=== PATIENT | male | born 1955 | race Hispanic/Latino ===

== ENCOUNTER 2017-07-29 03:47 | Observation (INO) | payer BC, OTHER ==
[~2017-07-29] VITALS: Ht 167.6 cm; Wt 98.1 kg
[2017-07-29] VITALS (7 sets, daily range): BP systolic 124–147; BP diastolic 80–89
[~2017-07-29 03:47] MED LIST: ASPIRIN ENTERI325 MG PO; ATORVASTATIN CA20 MG PO; MAGNESIUM OXID400 MG PO; METOPROLOL SUCC25 MG PO; NITROGLYCERIN0.4 MG SL; PLAVIX75 MG PO; VASOTEC5 MG PO
[2017-07-29] MEDS ORDERED: PANTOPRAZOLE 40 MG 10ML VIAL IV STA (04:21)
[2017-07-29] MEDS ORDERED: ASPIRIN 81 MG CHEW TAB ONE (04:24)
[2017-07-29] MEDS ORDERED: ASPIRIN 81 MG CHEW TAB PO ONE (04:30)
[2017-07-29 04:31] LABS: BASOPHILS # (AUTO) 0.1 (0.0-0.1); BASOPHILS % 0.5 % (0.0-1.0); EOSINOPHILS # (AUTO) 0.5 (0.0-0.4); HEMATOCRIT 44.1 % (38.2-49.6); HEMOGLOBIN 15.2 g/dL (14.0-18.0); LYMPHOCYTES # (AUTO) 4.2 (1.0-3.2); LYMPHOCYTES % 43.6 % (18.0-39.1); MEAN CORPUSCULAR HEMOGLOBIN 30.7 pg (28-32); MEAN CORPUSCULAR HGB CONC 34.5 g/dL (31-35); MEAN CORPUSCULAR VOLUME 89.1 fL (81-99); MONOCYTES # (AUTO) 0.7 (0.2-0.8); NEUTROPHILS # (AUTO) 4.2 (2.1-6.9); NEUTROPHILS % 43.8 % (38.7-80.0); PLATELET COUNT 230 x10e3/uL (140-360); RED BLOOD COUNT 4.95 x10e6/uL (4.3-5.7); RED CELL DISTRIBUTION WIDTH 12.6 % (11.7-14.4)
[2017-07-29 04:35] LABS: INR 1.15; PROTHROMBIN TIME 13.8 seconds (11.9-14.5)
[2017-07-29 04:36] LABS: PARTIAL THROMBOPLASTIN TIME 29.9 seconds (23.8-35.5)
[2017-07-29 04:46] LABS: ALANINE AMINOTRANSFERASE 19 IU/L (0-55); ALBUMIN 3.9 g/dL (3.5-5.0); ALBUMIN/GLOBULIN RATIO 1.3 (0.8-2.0); ALKALINE PHOSPHATASE 58 IU/L (40-150); ANION GAP 13.5 mmol/L (8-16); BLOOD UREA NITROGEN 16 mg/dL (7-26); BUN/CREATININE RATIO 14 (6-25); CALCIUM 9.3 mg/dL (8.4-10.2); CARBON DIOXIDE 26 mmol/L (22-29); CHLORIDE 104 mmol/L (98-107); CREATINE KINASE 124 IU/L (30-200); CREATININE, SERUM 1.13 mg/dL (0.72-1.25); EST GLOMERULAR FILTRATION RATE > 60 ML/MIN (60-); GLUCOSE 265 mg/dL (74-118); MAGNESIUM 2.1 MG/DL (1.3-2.1); POTASSIUM 4.5 mmol/L (3.5-5.1); SODIUM 139 mmol/L (136-145)
[2017-07-29 04:51] LABS: CREATINE KINASE MB < 1.00 ng/mL (0-4.3)
--- NOTE | 2017-07-29 05:48 | Diagnostic Imaging Report ---
EXAMINATION: CHEST 2 VIEWS INDICATION: Chest pain COMPARISON: 05/06/2016 FINDINGS: TUBES and LINES: None. LUNGS: Lungs are well inflated. Lungs are clear. There is no evidence of pneumonia or pulmonary edema. PLEURA: No pleural effusion or pneumothorax. HEART AND MEDIASTINUM: The cardiomediastinal silhouette is unremarkable. BONES AND SOFT TISSUES: No acute osseous lesion. Soft tissues are unremarkable. UPPER ABDOMEN: No free air under the diaphragm. IMPRESSION: No acute thoracic abnormality. Signed by: Dr. Pedro Tao M.D. on 07/29/2017 5:44 AM
[2017-07-29] MEDS ORDERED: ACETAMINOPHEN 325 MG TAB PO PRN (06:30)
[2017-07-29] MEDS ORDERED: ONDANSETRON HCL 4 MG ORAL DISINTEGRATING TAB PO PRN (06:30)
[2017-07-29] MEDS ORDERED: NITROGLYCERIN 0.4 MG SUBL SL PRN ×2 (06:30→08:15)
[2017-07-29] MEDS ORDERED: MORPHINE SULFATE 2 MG/ML SYR IV PRN (06:30)
--- OUTSIDE RECORDS SUMMARY | 2017-07-29 06:53 | XMS REPORT ---
Author [facility] Address Unknown Phone Unavailable Care Team Providers Care Inside Channel Account Manager Name Role Phone LOUANN ALVAREZ Unavailable Unavailable Problems This patient has no known problems. Allergies, Adverse Reactions, Alerts This patient has no known allergies or adverse reactions. Medications This patient has no known medications. Results Test Description Test Time Test Comments Text Results Atomic Results Result Comments CHEST 2 VIEWS [place] [address] Patient Name: LAQUITA VITALE MR #: [id number] : 1955 Age/Sex: 61/M Req # : [id number] Adm Physician: Ordered by: LOUANN ALVAREZ MD Report #: [id number] Location: ER Room/Bed: Procedure: [id number] DX/CHEST 2 VIEWS Exam Date: 07/29/17 Exam Time: 7 REPORT STATUS: Signed EXAMINATION: CHEST 2 VIEWS INDICATION: Chest pain COMPARISON: 05/06/2016 FINDINGS : TUBES and LINES: None. LUNGS: Lungs are well inflated. Lungs are clear. There is no evidence of pneumonia or pulmonary edema. PLEURA: No pleural effusion or pneumothorax. HEART AND MEDIASTINUM: The cardiomediastinal silhouette is unremarkable. BONES AND SOFT TISSUES: No acute osseous lesion. Soft tissues are unremarkable. UPPER ABDOMEN: No free air under the diaphragm. IMPRESSION: No acute thoracic abnormality. Signed by: Dr. Pedro Tao M.D. on 07/29/2017 5:44 AM Dictated By: PEDRO HADLEY MD 3 Transcribed By: ELVIS on 07/29/17543 COPY TO: LOUANN ALVAREZ MD
[2017-07-29] MEDS: FAMOTIDINE 20 MG/2 ML VIAL IV SCH ×2 (08:47→22:34)
[2017-07-29] MEDS ORDERED: ENALAPRIL MALEATE 5 MG TAB PO SCH (09:00)
[2017-07-29] MEDS ORDERED: CLOPIDOGREL BISULFATE 75 MG TAB PO SCH ×2 (09:00)
[2017-07-29] MEDS ORDERED: ASPIRIN 325 MG TAB EC PO SCH ×2 (09:00)
--- NOTE | 2017-07-29 09:31 | Consultation ---
DATE OF CONSULTATION: July 29, 2017 CARDIOLOGY CONSULTATION REASON FOR CONSULTATION: Chest pain. CONSULTING PHYSICIAN: Dr. Horner. HPI: This is a pleasant 61-year-old male who presented with chest pain. According to the patient, 30 minutes to an hour before arrival he was woke up from sleep with chest pain. He stated he felt like a pressure at the center of his chest that radiated to his neck. He also stated the day before he had mowed his lawn and cut the grass. He denies any palpitations, any dizziness, any shortness of breath, any diaphoresis, or headache. Troponin times 1 negative. Magnesium was 2.1. EKG showed sinus bradycardia with inverted T-waves. PAST MEDICAL HISTORY: High blood pressure. PAST SURGICAL HISTORY: Cholecystectomy and cardiac catheterization with no intervention. FAMILY HISTORY: Positive for CAD. SOCIAL HISTORY: No smoking. He lives at home with the and drinks occasionally. MEDICATIONS: He was on magnesium, metoprolol, aspirin, atorvastatin, Plavix, Vasotec, and nitroglycerin sublingual. ALLERGIES: HE IS NOT ALLERGIC TO ANY MEDICATIONS. REVIEW OF SYSTEMS: Negative except those mentioned above. Is positive with chest pain. PHYSICAL EXAMINATION VITAL SIGNS: Temperature 98, heart rate 52, blood pressure 135/88, respirations 20, oxygen saturation 96% on room air. GENERAL: He is awake, alert and oriented times 3. HEENT: Mucous membranes moist. NECK: Supple. LUNGS: Bilaterally clear to auscultation. CARDIOVASCULAR: S1 and S2 present. ABDOMEN: Soft. NEUROLOGICAL: Intact. EXTREMITIES: With no edema. LABS: Sodium 139, potassium 4.5, chloride 104, CO2 26, BUN 16, creatinine 1.13, glucose 265. White blood cells 9.59, hemoglobin 15.2, hematocrit 44.1, and platelets 230,000. PT 13.8, PTT 29.9 and INR 1.15. IMPRESSION 1. Chest pain. 2. Hypertension. 3. Possible diabetic. 4. Myocardial infarction, history. ASSESSMENT AND PLAN 1. He had a recent cardiac catheterization last year in April 2016 with medical management. No PCI. 2. Due to the elevated nonfasting blood sugar, will check his hemoglobin A1c and TSH. 3. Pending an echo to reassess the LV and the valve function. Will get serial cardiac enzymes. Resume home medications. Heart rate is low. Will go ahead and hold the beta darlin for now. Will continue statin and nitrates. Further cardiac workup pending the troponin labs times 2 more sets. Thank you for this consultation. DICTATED BY FORTINO BERNAL NP Job#: [id number] KIERSTEN
[2017-07-29 12:53] LABS: CREATINE KINASE MB 1.7 ng/mL (0-5.0)
[2017-07-29] MEDS ORDERED: DEXTROSE 50% SYRINGE 50 ML IV PRN (15:45)
[2017-07-29] MEDS: INSULIN REGULAR, HUMAN 100 UNIT/1 ML 3ML VIAL SQ SCH ×2 (16:30→21:00)
[2017-07-29] MEDS ORDERED: ATORVASTATIN 20 MG TAB PO SCH (21:00)
[2017-07-29 21:30] LABS: CREATINE KINASE MB 4.7 ng/mL (0-5.0)
[2017-07-29] MEDS: ENALAPRIL MALEATE 5 MG TAB PO SCH (23:09)
[2017-07-29] MEDS: CLOPIDOGREL BISULFATE 75 MG TAB PO SCH (23:09)
[2017-07-29] MEDS: ATORVASTATIN 20 MG TAB PO SCH (23:09)
[2017-07-29] MEDS: ASPIRIN 325 MG TAB EC PO SCH (23:09)
[2017-07-30 04:00] VITALS: BP 121/80
[2017-07-30 06:54] LABS: CHOL/HDL RATIO 3.7 (3.9-4.7)
[2017-07-30 07:06] LABS: CREATINE KINASE MB 6.1 ng/mL (0-5.0)
[2017-07-30] MEDS: INSULIN REGULAR, HUMAN 100 UNIT/1 ML 3ML VIAL SQ SCH ×4 (07:30→21:07)
[2017-07-30 08:21] VITALS: BP 133/83
[2017-07-30] MEDS: FAMOTIDINE 20 MG/2 ML VIAL IV SCH ×2 (09:07→22:59)
--- NOTE | 2017-07-30 09:51 | Progress Note ---
DATE: July 30, 2017 Mr. Bradford is a 61-year-old man with a history of coronary artery disease, hypertension, hyperlipidemia, and new-onset diabetes, who came to the emergency room complaining of chest pain that started at 2:30 in the morning that was constant like a pressure and headache. No shortness of breath. No nausea or vomiting. He was seen by a crusher and blender operator. EKG showed sinus bradycardia with inverted T waves. The 1st set of cardiac enzymes was negative. The 2nd and 3rd sets of troponin came back positive. PHYSICAL EXAMINATION GENERAL: Today he is awake and alert. VITALS: Temperature is 96.8, blood pressure 133/83, respiratory rate 18, pulse 58. HEART: Regular rate. LUNGS: Clear to auscultation. ABDOMEN: Soft. LOWER EXTREMITIES: No edema and no erythema. LABS: On the blood work, potassium is 4.5, creatinine 1.13, glucose 265. White count 9.59, hemoglobin 15.2, hematocrit 44.1. Chest x-ray shows no acute thoracic abnormality. ASSESSMENT AND PLAN 1. Chest pain. He has ruled in for xpr-[id number] myocardial infarction. 2. History of coronary artery disease with a recent catheterization done in April 2016. 3. Hypertension. 4. Hyperlipidemia. 5. New onset diabetes. At the present time, the patient is n.p.o. for cardiac cath today. Continue famotidine 20 mg IV daily. Continue aspirin 325 mg daily, enalapril 10 mg daily, Plavix 75 mg daily, atorvastatin 20 mg daily. He is on a sliding scale with insulin and nitroglycerin as needed for chest pain. Like I said before, the plan is the patient is waiting for cardiac cath today. All of this was discussed with him and family member at bedside. All questions were answered to satisfaction. Job#: [id number]
[2017-07-30 12:00] VITALS: BP 123/81
[2017-07-30 16:44] VITALS: BP 135/88
[2017-07-30] MEDS ORDERED: ENOXAPARIN SODIUM INJ 100 MG/ML SYR SC ONE (17:45)
[2017-07-30 20:10] VITALS: BP 148/94
[2017-07-30] MEDS: ATORVASTATIN 20 MG TAB PO SCH (22:59)
[2017-07-30] MEDS: CLOPIDOGREL BISULFATE 75 MG TAB PO SCH (22:59)
[2017-07-30] MEDS: ASPIRIN 325 MG TAB EC PO SCH (22:59)
[2017-07-30] MEDS: ENALAPRIL MALEATE 5 MG TAB PO SCH (23:00)
[2017-07-31] VITALS (8 sets, daily range): BP systolic 116–124; BP diastolic 78–87
[2017-07-31] MEDS ORDERED: MIDAZOLAM HCL 2 MG/2 ML VIAL ONE (06:14)
[2017-07-31] MEDS ORDERED: SODIUM CHLORIDE 0.9% 1000ML 1,000 ML ONE (06:15)
[2017-07-31] MEDS ORDERED: HEPARIN SOD/SOD CHLORIDE 2,000 ML ONE (06:15)
[2017-07-31] MEDS ORDERED: LIDOCAINE HCL 2% LOCAL 20 ML VIAL ONE (06:15)
[2017-07-31] MEDS ORDERED: FENTANYL CITRATE/PF 100MCG/2 ML INJ ONE (06:15)
[2017-07-31] MEDS ORDERED: IOPAMIDOL 370 MG/ML 200 ML INFUS..BTL INJ ONE (06:15)
[2017-07-31 06:48] LABS: BASOPHILS % 0.4 % (0.0-1.0); EOSINOPHILS # (AUTO) 0.3 (0.0-0.4); HEMATOCRIT 46.6 % (38.2-49.6); HEMOGLOBIN 16.4 g/dL (14.0-18.0); LYMPHOCYTES # (AUTO) 3.6 (1.0-3.2); LYMPHOCYTES % 33.3 % (18.0-39.1); MEAN CORPUSCULAR HEMOGLOBIN 31.2 pg (28-32); MEAN CORPUSCULAR HGB CONC 35.2 g/dL (31-35); MEAN CORPUSCULAR VOLUME 88.8 fL (81-99); MONOCYTES # (AUTO) 0.6 (0.2-0.8); MONOCYTES % 5.4 % (4.4-11.3); NEUTROPHILS # (AUTO) 6.3 (2.1-6.9); NEUTROPHILS % 57.7 % (38.7-80.0); PLATELET COUNT 218 x10e3/uL (140-360); RED BLOOD COUNT 5.25 x10e6/uL (4.3-5.7); RED CELL DISTRIBUTION WIDTH 12.5 % (11.7-14.4)
[2017-07-31 07:24] LABS: ANION GAP 12.4 mmol/L (8-16); BLOOD UREA NITROGEN 19 mg/dL (7-26); BUN/CREATININE RATIO 17 (6-25); CALCIUM 9.6 mg/dL (8.4-10.2); CARBON DIOXIDE 27 mmol/L (22-29); CHLORIDE 104 mmol/L (98-107); CREATININE, SERUM 1.14 mg/dL (0.72-1.25); EST GLOMERULAR FILTRATION RATE > 60 ML/MIN (60-); GLUCOSE 200 mg/dL (74-118); POTASSIUM 4.4 mmol/L (3.5-5.1); SODIUM 139 mmol/L (136-145)
[2017-07-31] MEDS: INSULIN REGULAR, HUMAN 100 UNIT/1 ML 3ML VIAL SQ SCH ×2 (07:30→12:20)
[2017-07-31] MEDS: FAMOTIDINE 20 MG/2 ML VIAL IV SCH (09:00)
--- NOTE | 2017-07-31 10:01 | Operative Report ---
DATE OF PROCEDURE: July 31, 2017 PROCEDURES: 1. Left heart catheterization. 2. Selective coronary angiogram. 3. Left ventriculogram. INDICATIONS: [id number] [place]. ANESTHESIA: Two percent 2% lidocaine for local anesthesia. DESCRIPTION OF PROCEDURE: After informed consent, the patient was brought to the cardiac catheterization laboratory and placed on the table. Both groins were painted and draped in a sterile fashion. Lidocaine injected in the right groin for local anesthesia. Right femoral artery was accessed by Seldinger technique. Attempts were made to pass a 5-[place] sheath, but the sheath would not advance. A dilator was used to dilate the arteriotomy site, and then a 6-[place] sheath was placed in the right femoral artery. Left main was cannulated using a JL4, 5-[place] catheter. Coronary angiogram was performed. Images obtained in multiple views. The right coronary artery was cannulated using a 3DRC 5-[place] catheter. Coronary angiogram was performed and images obtained in multiple views. LV-gram was performed using a pigtail catheter. Patient tolerated the procedure without any complications. REPORT LEFT MAIN: Normal caliber. There is luminal irregularities. LEFT ANTERIOR DESCENDING: Normal caliber. Diffuse luminal irregularities with about 20% to 30% mid-lesion. LEFT CIRCUMFLEX: Is of normal caliber with diffuse luminal irregularities. The 2nd obtuse marginal branch is a small branch and has a 90% proximal lesion. RIGHT CORONARY ARTERY: Large caliber and is diffusely diseased and partly aneurysmal. It has a 60% distal lesion. The posterior descending artery appears to be occluded flushed at its origin. LV-GRAM: Mild diffuse hypokinesis noted. Overall ejection fraction appears to be over 50%. HEMODYNAMICS: Aortic pressure is 125/75. LV pressure is 127/6. LVEDP 16. PLAN: Medical management. Job#: [id number] KIERSTEN
[2017-07-31] MEDS ORDERED: AMARYL2 MG (13:32)
[2017-07-31] MEDS ORDERED: METFORMIN HCL500 MG PO (13:33)
--- NOTE | 2017-07-31 14:36 | Discharge Summary ---
Mr. Bradford is a 61-year-old man with history of coronary artery disease, hypertension, hyperlipidemia, new onset diabetes. He came to the emergency room complaining of chest pain. He had a cardiac cath done this morning. He has some occlusion, but he did not require a stent, and medical treatment was suggested. The plan is to discharge him home if stable in the afternoon. On physical examination, he is awake and alert. He does not have any more chest pain. Temperature is 97.8, blood pressure 116/87. The heart is regular rate. The lungs are clear to auscultation. Abdomen is soft. On blood work, potassium is 4.4, creatinine 1.14, glucose 200. White count 10.9, hemoglobin 16.4, hematocrit 46.6. DISCHARGE DIAGNOSES 1. Chest pain, resolved. 2. History of coronary artery disease that is going to require medical treatment. 3. Hypertension. 4. New-onset diabetes. 5. Hyperlipidemia. PLAN: The plan is to discharge the patient home with a low-cholesterol diet, ADA diet, 1800 calories. Continue enalapril 10 mg daily, famotidine 20 mg q.12 h., nitroglycerin p.r.n. for chest pain, aspirin 325 mg daily, Plavix 75 mg daily, atorvastatin 20 mg daily. We are going to start him on Amaryl 2 mg twice a day and metformin 500 mg twice a day. He needs to follow up with the it security manager as directed by him. He needs to follow up with me in 1 week. He is to call me or come back to the emergency room if any recurrent problem. All of this was discussed with the patient and at bedside, and all questions were answered to satisfaction. TORY HOOD MD Job#: [id number]
== END 2017-07-31 15:29 | disposition home or self-care (01) ==
LOC: ER 03:47 → ERHOLD 06:51 → IMCU 10:49
PROVIDERS: ADMIT Internal Medicine; ATTEND Internal Medicine
DX: I25.10 Atherosclerotic heart disease of native coronary artery without angina pectoris (principal); I10 Essential (primary) hypertension; I07.1 Rheumatic tricuspid insufficiency; R07.89 Other chest pain; I25.2 Old myocardial infarction; E78.5 Hyperlipidemia, unspecified; E11.9 Type 2 diabetes mellitus without complications; Z79.84 Long term (current) use of oral hypoglycemic drugs; Z79.02 Long term (current) use of antithrombotics/antiplatelets; Z79.82 Long term (current) use of aspirin; Z82.49 Family history of ischemic heart disease and other diseases of the circulatory system
CPT/HCPCS: 36415 ×3; 71046; 80048; 80053; 80061; 82550 ×2; 82553 ×2; 82948 ×3; 83036; 83735; 83880; 84443; 84484 ×2; 85025 ×2; 85610; 85730; 93005; 93306; 93458; 96374; 99284; C1760; G0378 ×3; J1650; J2001; J2250; J7030; Q9967; 36140; 77002; 93452